=== PATIENT | male | born 1960 | race Caucasian/White ===

== ENCOUNTER → 2024-08-07 18:00 | Outpatient (REF) | payer MEDICARE, OTHER, SELFPAY | LOC: RAD 18:00 | PROVIDERS: ATTENDING PHYSICIAN Family Medicine | DX: R05.1 Acute cough (principal) | CPT/HCPCS: 71046 ==

== ENCOUNTER 2025-03-01 09:45 | Emergency (ER) | payer MEDICARE, OTHER, SELFPAY ==
--- NOTE | 2025-03-01 09:55 | ED.GENMED ---
History of Present Illness
General
Chief Complaint: Heart Rate Problem
Time Seen by Provider: 03/01/25 09:54
History of Present Illness
History of Present Illness:
TIME OF INITIAL ENCOUNTER: 9:57 AM
HPI: Patient has history of atrial fibrillation and coronary artery disease with stents. He has been having palpitations more so over the past month. He feels that he has been going in and out of A-fib more commonly now. He has had some vague
chest discomfort over the last several weeks as well. He states when he was recently in [place] visiting his grandkids, he went on long hikes and did not have any chest pain. He did have a cold recently which is nearly gone but has been on
doxycycline and prednisone. He has not been taking any pseudoephedrine.
EXAM:
GENERAL: Well appearing in no distress
HEENT: Moist oral mucosa
CARDIOVASCULAR: No murmurs, normal heart rate, irregular rhythm, No chest wall tenderness
PULMONARY: No respiratory distress, breath sounds are clear and equal
ABDOMEN: Soft with no peritoneal signs, no tenderness
NEUROLOGIC: Excellent strength all extremities, no coordination deficits
PSYCHIATRIC: Appropriate mental status, normal insight and judgement
EXTREMITIES: Nontender, no edema, moves all extremities equally
SKIN: No rash, no lesions
NUMBER AND COMPLEXITY OF PROBLEMS ADDRESSED AT THE ENCOUNTER
� Chronic conditions affecting care: A-fib, high blood pressure, hyperlipidemia, coronary disease, hepatitis A
� Acute Exacerbation and/or Progression of Chronic Illness: This is an acute problem
� Differential Diagnosis includes: Paroxysmal A-fib, electrolyte abnormality, thyroid disease, ACS very unlikely
AMOUNT AND/OR COMPLEXITY OF DATA TO BE REVIEWED AND ANALYZED
� I performed an independent evaluation of and my interpretation is:
EKG: A-fib rate of 91, nonspecific ST abnormality, on 04/25/2020, the patient was in sinus rhythm
CT:
X-rays:
Laboratory Studies: White count 11.9, hemoglobin normal, chemistries unremarkable, troponin less than 0.012, TSH normal
Other:
� Review of other/old records: I reviewed records, the patient had coronary cath 04/25/2020 he had stent placed
� Clinical information was obtained by an independent historian: None needed
� Prescriptions/Medications Considered but not given:
� Further testing considered but not performed:
RISK OF COMPLICATIONS AND/OR MORBIDITY OR MORTALITY OF PATIENT MANAGEMENT
� Social determinants of health affecting care: Lives at home
� Discussion with other providers: Discussed case with Dr. Watters who agrees we should hold off on electrocardioversion but will try to get him in soon to be seen in their office.
� Escalation of care including admission/observation vs risk of discharge considered: Considered electrical cardioversion however the patient tells me that he thinks he may have missed a dose of Eliquis over the past 2 weeks.
ANY OTHER UPDATES:
While in the emergency department, the patient converted to a sinus rhythm without any intervention. He took his normal Eliquis dosing while in the Emergency Department.
Past History
Past History
ED Past Medical History: CAD, HTN and Hypercholesterolemia; Negative CHF, COPD or NIDDM
ED Past Surgical History: Other (LIPOMA REMOVALS, cath x2 stents - 10/22/13, right foot surgery 1980)
Social History
Tobacco: Non-smoker
Alcohol: None
Drug: None
Personal:
Living: with family
Employment: Employed
Family History
Family History: CAD
Phy Exam
Physical Exam
Physical Exam:
See HPI
Course
Orders/Labs/Results
Orders:
Orders
03/01/25 09:52
Electrocardiogram (*1) Urgent
Reason for Study: Chest Pain
EKG- Treatment ONCE
03/01/25 10:26
Basic Metabolic Panel Urgent
Complete Blood Count/With Diff Urgent
Magnesium Urgent
TSH Reflex To Free T4 Urgent
Troponin I Urgent
03/01/25 10:51
EKG [Electrocardiogram (*1)] Urgent
Reason for Study: Atrial Fibrillation
EKG- Treatment ONCE
Abnormal Lab Results
03/01/25
10:26
WBC 11.9 H 10^3/uL
(4.8-10.8)
Abs Immat Gran (auto) 0.1 H 10^3/uL
(0-0.05)
Absolute Neuts (auto) 9.3 H 10^3/uL
(1.4-6.5)
Absolute Monos (auto) 0.7 H 10^3/uL
(0.1-0.6)
Immature Gran % 0.8 H %
(0-0.5)
Neutrophils % 77.6 H %
(42.2-75.2)
Lymphocytes % 15.4 L %
(20.5-51.1)
BUN 21 H mg/dl
(9-20)
Glucose 109 H mg/dl
(70-99)
03/01/25 10:26
03/01/25 10:26
Vital Signs
Initial and Last Documented VS:
Initial Vital Signs
Temp Pulse Resp Pulse Ox
36.6 C 105 16 96
03/01/25 09:47 03/01/25 09:47 03/01/25 09:47 03/01/25 09:47
Last Documented Vital Signs
Temp Pulse Resp BP Pulse Ox
36.6 C 77 17 132/65 96
03/01/25 09:47 03/01/25 11:30 03/01/25 11:30 03/01/25 11:00 03/01/25 11:30
*Critical Care Note
Total Time (30-74mins, 75-104mins- exclusive of procedures): Not Applicable
ED Attending Note
-
Portions of this chart may have been created with voice recognition software.� Occasional wrong word or��sound alike� substitutions may have occurred due to the inherent limitations of voice recognition software.
Discharge Plan
Departure
Patient Disposition: Home (Routine Discharge)
Date of Disposition: 03/01/25
Time of Disposition: 11:40
Patient with high blood pressure during this ER visit?: Yes
Discharge Problem:
Paroxysmal atrial fibrillation
Prescriptions:
No Action
magnesium oxide 250 MG tablet
400 mg PO 1400
alprazolam 0.25 MG tablet
0.25 mg PO Q8HPRN PRN (Reason: anxiety)
diltiazem HCl 180 MG capsule,extended release 24hr
240 mg PO DAILY
ascorbic acid (vitamin C) [Vitamin C] 500 MG tablet
500 mg PO BID
coenzyme Q10 [Co Q-10] 100 MG capsule
100 mg PO DAILY
cholecalciferol (vitamin D3) 125 MCG tablet,disintegrating
125 mcg PO DAILY
nitroglycerin 0.4 MG tablet, sublingual
0.4 mg sublingual [id number] PRN (Reason: chest pain) Qty: 25 2RF
metoprolol succinate 100 MG tablet extended release 24 hr
75 mg PO QPM Qty: 0 0RF
pantoprazole 40 MG tablet,delayed release (DR/EC)
40 mg PO DAILY Qty: 90 3RF
Patient Comments:
2-3 times a week
Rx Instructions:
Please increase to daily while on plavix and eliquis together
apixaban [Eliquis] 5 MG tablet
5 mg PO BID Qty: 0 0RF
Rx Instructions:
OK to restart tonight, 6/12 in PM
clopidogrel 75 MG tablet
75 mg PO DAILY Qty: 90 3RF
aspirin 81 MG tablet,delayed release (DR/EC)
81 mg PO DAILY Qty: 0 0RF
Rx Instructions:
Please take for 2 weeks post cath then STOP completely
rosuvastatin 20 MG tablet
20 mg PO QPM Qty: 90 3RF
Rx Instructions:
OK to finish bottle of atorvastatin and then start crestor
Referrals:
Josh Thomson MD [Active] - Follow up in 2-3 days
Levon Currie, [Family Provider] -
Activity Restrictions/Additional Instructions:
Continue your current medications. Return here if worse or other concerns. Follow-up with your commercial loan underwriter.
Interventions
Interventions:
*Risk Screen - Suicide Last Done: 03/01/25 10:40
*General Assessment Last Done: 03/01/25 10:40
*Neglect/Abuse Screening Last Done: 03/01/25 10:40
*ED- Fall Risk Assessment Last Done: 03/01/25 10:40
*ED COVID-19 Vaccine History Last Done: 03/01/25 10:40
ED- Cardiac Assessment Last Done: 03/01/25 10:41
ED- Pulmonary Assessment Last Done: 03/01/25 10:41
Discharge Date and Time
Print Language: GERMAN
[2025-03-01 10:00] VITALS: BP 136/74
[2025-03-01 10:19] VITALS: BMI 36.2
[2025-03-01 10:45] LABS: % Basophils 0.2 % (0-2); % Immature Granulocytes 0.8 % (0-0.5); % Lymphocytes 15.4 % (20.5-51.1); % Neutrophils 77.6 % (42.2-75.2); Absolute Immature Granulocytes 0.1 10^3/uL (0-0.05); Absolute Lymphocytes 1.8 10^3/uL (1.2-3.4); Absolute Monocytes 0.7 10^3/uL (0.1-0.6); Absolute Neutrophils 9.3 10^3/uL (1.4-6.5); Hematocrit 41.3 % (39.0-52.0); Hemoglobin 14.7 g/dL (13.0-18.0); Mean Corp Hgb Conc. 35.6 g/dL (33.0-37.0); Mean Corpuscular Hgb 30.4 pg (27.0-31.0); Mean Corpuscular Volume 85.3 fL (80.0-94.0); Mean Platelet Volume 8.1 fL (7.4-10.4); Nucleated Red Blood Cells % 0 % (-); Platelet Count 214 10^3/uL (130-400); Red Blood Cell Count 4.84 10^6/uL (4.70-6.10); Red Cell Dist. Width 12.1 % (11.5-14.5); White Blood Cell Count 11.9 10^3/uL (4.8-10.8)
[2025-03-01 10:57] LABS: Blood Urea Nitrogen 21 mg/dl (9-20); Calcium 9.7 mg/dl (8.4-10.2); Carbon Dioxide 27 mmol/L (22-30); Chloride 103 mmol/L (98-107); Estimated Creatinine Clearance 107 ml/min; Glucose 109 mg/dl (70-99); Potassium 4.3 mmol/L (3.5-5.1); Sodium 140 mmol/L (135-145); eGFR > 60.00
[2025-03-01 11:00] VITALS: BP 132/65
[2025-03-01 11:09] LABS: Troponin I < 0.012 ng/ml
[2025-03-01 11:49] LABS: TSH Reflex To Free T4 2.42 uIU/ml (0.47-4.68)
[2025-03-01 12:51] VITALS: BP 132/65
== END 2025-03-01 12:00 | disposition home or self-care (01) ==
LOC: EMR 09:45
PROVIDERS: EMERGENCY PHYSICIAN Emergency Medicine; FAMILY PHYSICIAN Family Medicine; REFERRING PHYSICIAN Internal Medicine Cardiovascular Disease
DX: I48.0 Paroxysmal atrial fibrillation (principal); I25.10 Atherosclerotic heart disease of native coronary artery without angina pectoris; I10 Essential (primary) hypertension; E78.00 Pure hypercholesterolemia, unspecified; Z82.49 Family history of ischemic heart disease and other diseases of the circulatory system; Z95.5 Presence of coronary angioplasty implant and graft
CPT/HCPCS: 99283; 80048; 83735; 84443; 84484; 85025; 93005

== ENCOUNTER 2025-03-09 07:53 | Emergency (ER) | payer MEDICARE, OTHER, SELFPAY ==
[2025-03-09 08:01] VITALS: BP 141/79
[2025-03-09 08:18] VITALS: BP 130/69
[2025-03-09 08:20] VITALS: BP 130/69; BMI 35.0
--- NOTE | 2025-03-09 08:35 | ED.GENMED ---
History of Present Illness
General
Chief Complaint: Heart Rate Problem
Source: patient and spouse
Time Seen by Provider: 03/09/25 08:07
History of Present Illness
History of Present Illness:
65-year-old male with a history of A-fib on Eliquis, metoprolol and diltiazem who presents after he sensed some palpitations and irregular heartbeat. Patient states that he otherwise has no symptoms. He denies shortness of breath or chest pain.
No diaphoresis. Tolerating recent long walks and hikes. Does see cardiology. Has not had electrophysiology evaluation. Patient states that sometimes he will take a little bit of lorazepam or an extra dose of metoprolol. Currently offers no
complaints
Past History
Past History
ED Past Medical History: Arrthythmia (Atrial fibrillation), CAD, HTN and Hypercholesterolemia; Negative CHF, COPD or NIDDM
ED Past Surgical History: Other (LIPOMA REMOVALS, cath x2 stents - 10/22/13, right foot surgery 1980)
Social History
Tobacco: Non-smoker
Alcohol: None
Drug: None
Personal:
Living: with family
Employment: Employed
Family History
Family History: CAD
Phy Exam
Physical Exam
Physical Exam:
CONSTITUTIONAL Patient alert and oriented to person, place and time. Well-appearing. Vital signs reviewed.
HEAD atraumatic, normocephalic.
EYES eyelids normal to inspection, Extraocular muscles intact, Conjunctiva normal, Sclera normal.
NECK normal range of motion, Trachea midline, no jugular venous distention.
RESPIRATORY CHEST No respiratory distress noted, Chest expansion equal, Bilateral breath sounds clear.
CARDIOVASCULAR irregularly irregular
ABDOMEN abdomen nontender, Bowel sounds normal. No distention.
BACK normal inspection, no obvious deformities
UPPER EXTREMITY range of motion normal, Motor strength normal, no cyanosis, no edema.
LOWER EXTREMITY range of motion normal, Motor strength normal, no cyanosis, no edema.
NEURO Speech normal, No focal motor deficits, Remlap coma scale 15, Memory normal, Cranial Nerves intact to screening exam.
SKIN skin warm, dry, and normal in color.
Course
Orders/Labs/Results
Orders:
Orders
03/09/25 07:54
ECG [Electrocardiogram (*1)] Urgent
Reason for Study: Palpitations
EKG- Treatment ONCE
03/09/25 08:36
Complete Blood Count/With Diff Urgent
Comprehensive Metabolic Panel Urgent
Magnesium Urgent
Abnormal Lab Results
03/09/25
08:36
Glucose 104 H mg/dl
(70-99)
03/09/25 08:36
03/09/25 08:36
Vital Signs
Initial and Last Documented VS:
Initial Vital Signs
Temp Pulse Resp BP Pulse Ox
97.4 F 81 18 141/79 96
03/09/25 08:01 03/09/25 08:01 03/09/25 08:01 03/09/25 08:01 03/09/25 08:01
Last Documented Vital Signs
Temp Pulse Resp BP Pulse Ox
98.6 F 72 20 130/69 98
03/09/25 08:20 03/09/25 08:20 03/09/25 08:20 03/09/25 08:20 03/09/25 08:20
MDM/Problems Addressed
Differential Diagnosis Includes:
Electrolyte disturbance, volume depletion
MDM/Problems Addressed:
Paroxysmal atrial fibrillation
*Pulse Oximetry
Patient hypoxic: no
*EKG
Interpreted by ED Provider?: Yes
Interpretation: abnormal
Rate: normal
Rhythm: a-fib
Ischemia: non-specific ST changes
*Regulatory Compliance Engineer Interpretation
Rate: normal
Interpretation: abnormal
Rhythm: a-fib
*Critical Care Note
Total Time (30-74mins, 75-104mins- exclusive of procedures): Not Applicable
Data Reviewed
Source: patient and spouse (Spouse states that he tolerated recent travel to [place] without difficulty. Was also recently on steroids)
Prescriptions/Medications Considered But Not Given:
Considered AV blockers but heart rate consistently around 70
Patient Management
Escalation/DeEscalation of care consider admission/obs:
Patient A-fib but asymptomatic at this time. Already on Eliquis. Already on beta-blockers. At this point there is no indication for emergency cardioversion or other intervention. Will refer for outpatient cardiology follow-up
Update Note
Update Note:
08 03 patient converted to sinus rhythm. Outpatient follow-up
ED Attending Note
-
Portions of this chart may have been created with voice recognition software.� Occasional wrong word or��sound alike� substitutions may have occurred due to the inherent limitations of voice recognition software.
Discharge Plan
Departure
Patient Disposition: Home (Routine Discharge)
Date of Disposition: 03/09/25
Time of Disposition: 09:15
Patient with high blood pressure during this ER visit?: No
Discharge Problem:
Paroxysmal atrial fibrillation
Instructions: Atrial Fibrillation (DC)
Prescriptions:
No Action
magnesium oxide 250 MG tablet
400 mg PO 1400
alprazolam 0.25 MG tablet
0.25 mg PO Q8HPRN PRN (Reason: anxiety)
diltiazem HCl 180 MG capsule,extended release 24hr
240 mg PO DAILY
ascorbic acid (vitamin C) [Vitamin C] 500 MG tablet
500 mg PO BID
coenzyme Q10 [Co Q-10] 100 MG capsule
100 mg PO DAILY
cholecalciferol (vitamin D3) 125 MCG tablet,disintegrating
125 mcg PO DAILY
nitroglycerin 0.4 MG tablet, sublingual
0.4 mg sublingual [id number] PRN (Reason: chest pain) Qty: 25 2RF
metoprolol succinate 100 MG tablet extended release 24 hr
75 mg PO QPM Qty: 0 0RF
pantoprazole 40 MG tablet,delayed release (DR/EC)
40 mg PO DAILY Qty: 90 3RF
Patient Comments:
2-3 times a week
Rx Instructions:
Please increase to daily while on plavix and eliquis together
Eliquis 5 MG tablet
5 mg PO BID Qty: 0 0RF
Rx Instructions:
OK to restart tonight, 04/25 in PM
clopidogrel 75 MG tablet
75 mg PO DAILY Qty: 90 3RF
aspirin 81 MG tablet,delayed release (DR/EC)
81 mg PO DAILY Qty: 0 0RF
Rx Instructions:
Please take for 2 weeks post cath then STOP completely
rosuvastatin 20 MG tablet
20 mg PO QPM Qty: 90 3RF
Rx Instructions:
OK to finish bottle of atorvastatin and then start crestor
Referrals:
Levon Currie, DO [Family Provider] -
Activity Restrictions/Additional Instructions:
Please continue your current medications and see cardiology in the next 3 to 5 days for reevaluation. Further evaluation by turn sewer may be beneficial to evaluate management options. Return immediately for shortness of breath, chest
pain, leg swelling, worsening symptoms, lightheadedness, near passing out, passing out episode or any other concerns.
Interventions
Interventions:
*Risk Screen - Suicide Last Done: 03/09/25 08:01
*General Assessment Last Done: 03/09/25 08:01
*Neglect/Abuse Screening Last Done: 03/09/25 08:01
*ED- Fall Risk Assessment Last Done: 03/09/25 08:20
*ED COVID-19 Vaccine History Last Done: 03/09/25 08:20
ED- Cardiac Assessment Last Done: 03/09/25 08:20
ED- Pulmonary Assessment Last Done: 03/09/25 08:20
Discharge Date and Time
Print Language: CHINESE
[2025-03-09 08:49] LABS: % Basophils 0.5 % (0-2); % Eosinophils 2.3 % (0-6); % Immature Granulocytes 0.3 % (0-0.5); % Lymphocytes 29.3 % (20.5-51.1); % Monocytes 8.3 % (1.7-9.3); % Neutrophils 59.3 % (42.2-75.2); Absolute Eosinophils 0.2 10^3/uL (0-0.7); Absolute Lymphocytes 2.3 10^3/uL (1.2-3.4); Absolute Monocytes 0.6 10^3/uL (0.1-0.6); Absolute Neutrophils 4.6 10^3/uL (1.4-6.5); Hematocrit 43.3 % (39.0-52.0); Hemoglobin 15.1 g/dL (13.0-18.0); Mean Corp Hgb Conc. 34.9 g/dL (33.0-37.0); Mean Corpuscular Hgb 30.1 pg (27.0-31.0); Mean Corpuscular Volume 86.4 fL (80.0-94.0); Mean Platelet Volume 8.4 fL (7.4-10.4); Nucleated Red Blood Cells % 0 % (-); Platelet Count 181 10^3/uL (130-400); Red Blood Cell Count 5.01 10^6/uL (4.70-6.10); Red Cell Dist. Width 12.7 % (11.5-14.5); White Blood Cell Count 7.7 10^3/uL (4.8-10.8)
[2025-03-09 09:00] VITALS: BP 116/72
[2025-03-09 09:04] LABS: ALT (SGPT) 13 U/L (0-50); AST (SGOT) 18 U/L (17-59); Albumin 4.1 g/dl (3.5-5.0); Alkaline Phosphatase 64 U/L (38-126); Blood Urea Nitrogen 17 mg/dl (9-20); Calcium 9.6 mg/dl (8.4-10.2); Carbon Dioxide 25 mmol/L (22-30); Chloride 104 mmol/L (98-107); Estimated Creatinine Clearance 105 ml/min; Glucose 104 mg/dl (70-99); Magnesium 1.9 mg/dl (1.6-2.3); Potassium 4.3 mmol/L (3.5-5.1); Sodium 140 mmol/L (135-145); Total Bilirubin 0.8 mg/dl (0.2-1.3); Total Protein 6.9 g/dl (6.3-8.2); eGFR > 60.00
--- NOTE | 2025-03-09 09:20 | EDRN ---
Dr. Bueno currently at the pts bedside
--- NOTE | 2025-03-09 09:20 | EDRN ---
the pt converted into NSR in the -'s, Dr. Bueno currently at the pts bedside
== END 2025-03-09 09:38 | disposition home or self-care (01) ==
LOC: EMR 07:53
PROVIDERS: EMERGENCY PHYSICIAN Emergency Medicine; FAMILY PHYSICIAN Family Medicine
DX: I48.0 Paroxysmal atrial fibrillation (principal); I10 Essential (primary) hypertension; E78.00 Pure hypercholesterolemia, unspecified; Z79.899 Other long term (current) drug therapy; I25.10 Atherosclerotic heart disease of native coronary artery without angina pectoris; Z79.01 Long term (current) use of anticoagulants
CPT/HCPCS: 99284; 80053; 83735; 85025; 93005

== ENCOUNTER → 2025-03-27 06:45 | Outpatient (REF) | payer OTHER, SELFPAY | LOC: RCS 06:45 | PROVIDERS: ATTENDING PHYSICIAN Nurse Practitioner Gerontology; FAMILY PHYSICIAN Family Medicine | DX: I48.0 Paroxysmal atrial fibrillation (principal) | CPT/HCPCS: 93306 ==

== ENCOUNTER 2025-09-16 23:53 | Emergency (ER) | payer OTHER, SELFPAY ==
[2025-09-16 23:57] VITALS: BP 144/78
[2025-09-17 00:26] VITALS: BMI 37.7
[2025-09-17 00:31] VITALS: BP 101/68
[2025-09-17 01:00] VITALS: BP 113/63
[2025-09-17 01:05] LABS: Hematocrit 38.7 % (39.0-52.0); Hemoglobin 13.3 g/dL (13.0-18.0); Mean Corp Hgb Conc. 34.4 g/dL (33.0-37.0); Mean Corpuscular Volume 90.6 fL (80.0-94.0); Nucleated Red Blood Cells % 0 % (-); Platelet Count 137 10^3/uL (130-400); Red Cell Dist. Width 12.5 % (11.5-14.5)
[2025-09-17 01:15] LABS: ALT (SGPT) 14 U/L (0-50); AST (SGOT) 17 U/L (17-59); Albumin 4.2 g/dl (3.5-5.0); Alkaline Phosphatase 59 U/L (38-126); Blood Urea Nitrogen 16 mg/dl (9-20); Calcium 8.9 mg/dl (8.4-10.2); Carbon Dioxide 25 mmol/L (22-30); Chloride 103 mmol/L (98-107); Estimated Creatinine Clearance 109 ml/min; Glucose 103 mg/dl (70-99); Magnesium 1.9 mg/dl (1.6-2.3); Potassium 4.1 mmol/L (3.5-5.1); Sodium 132 mmol/L (135-145); Total Protein 7.1 g/dl (6.3-8.2); eGFR > 60.00
[2025-09-17 02:00] VITALS: BP 113/65
--- NOTE | 2025-09-17 02:07 | ED.GENMED ---
History of Present Illness
General
Chief Complaint: Heart Rate Problem
Source: patient and spouse
Time Seen by Provider: 09/17/25 00:37
History of Present Illness
History of Present Illness:
Note:
CHIEF COMPLAINT(S)
Atrial Fibrillation and Coughing
HISTORY OF PRESENT ILLNESS
The patient is a 62-year-old male with a history of atrial fibrillation, presenting with a 'pretty nasty coughing' over the last couple of days. The patient tested negative for COVID-19. Symptoms became more consistent around 5 or 6 PM. He took his
regular medications, including 10 mg of Eliquis (Apixaban) at 6 PM and 75 mg of Metoprolol at the same time the previous night. Additionally, the patient took Xanax (Alprazolam) 0.25 mg to alleviate anxiety and uses magnesium and vitamins C and D
supplements.
The patient reports feeling 'pretty good' currently, although at times he feels his heart rate is irregular but then stabilizes. The patient confirms his paper feeder, Dr. Thomson, manages his atrial fibrillation. He denies any shortness of breath
or chest pain and is not using any [id number] cold or cough medications.
Discussion included the possibility of the viral illness contributing to atrial fibrillation exacerbations. The patient�s heart rate is currently controlled, and his symptoms are tolerable. Concerns about reverting him from atrial fibrillation while
having a cold were discussed, as the cold might cause recurrence. The patient was advised to aim for weight reduction through calorie restriction and cautious magnesium supplementation to maintain electrolyte balance. A plan for monitoring
electrolyte levels through laboratory tests was agreed upon.
PAST MEDICAL AND SURGICAL HISTORY
Atrial Fibrillation
CHRONIC MEDICAL CONDITIONS SIGNIFICANTLY AFFECTING CARE
Atrial Fibrillation
MEDICATIONS
- Eliquis (Apixaban) 10 mg daily
- Metoprolol 75 mg daily
- Xanax (Alprazolam) 0.25 mg as needed
- Magnesium supplement
- Vitamin C
- Vitamin D
PHYSICAL EXAM
General: Alert, no acute distress.
Cardiovascular: Regularly irregular heart rate, 73 beats per minute.
Respiratory: Respirations are non-labored.
PROBLEM LIST
- Acute: Cough, Atrial Fibrillation exacerbation
- Chronic: Atrial Fibrillation
PLAN
- Monitor electrolyte levels through laboratory tests, focusing on potassium and magnesium.
- Discuss the possibility of cardioverting if symptoms worsen, but postpone due to current illness.
- Continue regular medication regimen.
- Consider consulting the paper feeder, Dr. Thomson, should the condition not improve or further complications arise.
- Implement a weight reduction plan with calorie restriction as discussed.
- Re-evaluate in three months for consistent lab results regarding magnesium and potassium maintenance.
DIFFERENTIAL DIAGNOSIS
The Differential Diagnosis includes, in no particular order and is not limited to:
1. Atrial Fibrillation exacerbation due to viral illness
2. Upper Respiratory Infection
3. COVID-19 (despite a negative test)
4. Pneumonia
5. Sinusitis
6. Heart Failure exacerbation
7. Anxiety-induced palpitations
8. Drug-induced arrhythmias
9. Electrolyte imbalances
10. Allergic rhinitis
EKG
My independent EKG interpretation is:
- Time of EKG: Not specified
- Rhythm: Atrial fibrillation
- Heart Rate: 74 bpm
- Ava: Normal
- Intervals: Normal
- Abnormalities: None noted, no acute ischemic changes
Disposition:
SUMMARY OF ENCOUNTER
The patient, a 62-year-old male with a known history of atrial fibrillation, presented with concerns about his heart 'fluttering' abnormally but in a rate-controlled manner. He reported no chest pain or shortness of breath, and his history was
consistent with an upper respiratory infection that had exacerbated his coughing. Previous emergency department visits included cardioversion on one occasion. Current laboratory results show a normal Complete Blood Count (CBC) and Comprehensive
Metabolic Panel (CMP). The Electrocardiogram (EKG) confirmed atrial fibrillation with a controlled rate. Considering his current cold, cardioversion was deferred as it may lead to quick reversion to atrial fibrillation due to the infection. It was
determined more prudent to stabilize his condition and defer cardioversion until after recovery, with instructions to continue his current medication regimen.
ASSESSMENT
1. Atrial fibrillation with rate control
2. Upper respiratory infection contributing to symptoms
PLAN
Continue current medications, including anticoagulation and heart rate control medication. Defer cardioversion until the upper respiratory infection resolves. Recommend follow-up with the patients paper feeder, Dr. Thomson, for further management
if atrial fibrillation persists.
INDEPENDENT REVIEW OF LABS AND INTERPRETATION OF TESTS
My independent review of CBC is normal.
My independent review of CMP is normal.
My independent EKG interpretation is atrial fibrillation with a controlled rate.
FOLLOW-UP INSTRUCTIONS
The patient should follow up with Dr. Thomson, their paper feeder, especially if atrial fibrillation persists.
MEDICATION RECONCILIATION
Continue anticoagulation medication and heart rate control medication as prescribed.
MEDICAL DECISION MAKING
-Complexity of Data Reviewed: Chronic conditions affecting care include atrial fibrillation, upper respiratory infection.
-Data:
Category 1
My independent interpretation of EKG confirms atrial fibrillation at a controlled rate.
-Risk:
Consideration of Admission/Observation: Escalation of care including admission/observation was considered given the complexity and risk of the patients presenting complaint. However, ultimately, the patient is deemed safe for outpatient management
with close follow-up. Reasoning: Work-up reassuring, does not reveal any acute life/organ-threatening processes, patients symptoms well-controlled upon reevaluation, reexamination is reassuring, vitals are stable, patient agreeable with discharge,
and reliable for follow-up.
DIAGNOSIS
1. Atrial fibrillation (I48.91)
2. Upper respiratory infection (J06.9)
Past History
Past History
ED Past Medical History: Arrthythmia (Atrial fibrillation), CAD, HTN and Hypercholesterolemia; Negative CHF, COPD or NIDDM
ED Past Surgical History: Other (LIPOMA REMOVALS, cath x2 stents - 10/22/13, right foot surgery 1980)
Social History
Tobacco: Non-smoker
Alcohol: None
Drug: None
Personal:
Living: with family
Employment: Employed
Family History
Family History: CAD
Phy Exam
Physical Exam
Physical Exam:
.
Course
Orders/Labs/Results
Orders:
Orders
09/16/25 23:54
ECG [Electrocardiogram (*1)] Urgent
Reason for Study: Palpitations
EKG- Treatment ONCE
09/17/25 00:45
Complete Blood Count/With Diff Urgent
Comprehensive Metabolic Panel Urgent
Magnesium Urgent
Abnormal Lab Results
09/17/25
00:45
RBC 4.27 L 10^6/uL
(4.70-6.10)
Hct 38.7 L %
(39.0-52.0)
MCH 31.1 H pg
(27.0-31.0)
Absolute Neuts (auto) 8.0 H 10^3/uL
(1.4-6.5)
Neutrophils % 79.6 H %
(42.2-75.2)
Lymphocytes % 11.9 L %
(20.5-51.1)
Sodium 132 L mmol/L
(135-145)
Glucose 103 H mg/dl
(70-99)
09/17/25 00:45
09/17/25 00:45
Vital Signs
Initial and Last Documented VS:
Initial Vital Signs
Temp Pulse Resp BP Pulse Ox
97.8 F 74 20 144/78 96
09/16/25 23:57 09/16/25 23:57 09/16/25 23:57 09/16/25 23:57 09/16/25 23:57
Last Documented Vital Signs
Temp Pulse Resp BP Pulse Ox
97.8 F 65 20 113/65 94
09/16/25 23:57 09/17/25 02:00 09/17/25 02:00 09/17/25 02:00 09/17/25 02:00
*Pulse Oximetry
SaO2: 95
Oxygen Mode of Delivery: Room air
Patient hypoxic: no
*Critical Care Note
Total Time (30-74mins, 75-104mins- exclusive of procedures): Not Applicable
ED Attending Note
-
Portions of this chart may have been created with voice recognition software.� Occasional wrong word or��sound alike� substitutions may have occurred due to the inherent limitations of voice recognition software.
Discharge Plan
Departure
Patient Disposition: Home (Routine Discharge)
Date of Disposition: 09/17/25
Time of Disposition: 02:09
Patient with high blood pressure during this ER visit?: No
Discharge Problem:
Paroxysmal A-fib
Instructions: Atrial Fibrillation (DC)
Prescriptions:
No Action
magnesium oxide 250 MG tablet
400 mg PO 1400
alprazolam 0.25 MG tablet
0.25 mg PO Q8HPRN PRN (Reason: anxiety)
diltiazem HCl 180 MG capsule,extended release 24hr
240 mg PO DAILY
ascorbic acid (vitamin C) [Vitamin C] 500 MG tablet
500 mg PO BID
coenzyme Q10 [Co Q-10] 100 MG capsule
100 mg PO DAILY
cholecalciferol (vitamin D3) 125 MCG tablet,disintegrating
125 mcg PO DAILY
nitroglycerin 0.4 MG tablet, sublingual
0.4 mg sublingual [id number] PRN (Reason: chest pain) Qty: 25 2RF
metoprolol succinate 100 MG tablet extended release 24 hr
75 mg PO QPM Qty: 0 0RF
pantoprazole 40 MG tablet,delayed release (DR/EC)
40 mg PO DAILY Qty: 90 3RF
Patient Comments:
2-3 times a week
Rx Instructions:
Please increase to daily while on plavix and eliquis together
Eliquis 5 MG tablet
5 mg PO BID Qty: 0 0RF
Rx Instructions:
OK to restart tonight, 04/25 in PM
clopidogrel 75 MG tablet
75 mg PO DAILY Qty: 90 3RF
aspirin 81 MG tablet,delayed release (DR/EC)
81 mg PO DAILY Qty: 0 0RF
Rx Instructions:
Please take for 2 weeks post cath then STOP completely
rosuvastatin 20 MG tablet
20 mg PO QPM Qty: 90 3RF
Rx Instructions:
OK to finish bottle of atorvastatin and then start crestor
Referrals:
Levon Currie, DO [Family Provider, Family Practice]
Activity Restrictions/Additional Instructions:
Please continue your current medications. Please see your paper feeder in the next 1 week for follow-up and reevaluation. If atrial fibrillation persists when you are upper respiratory infection resolves, you may consider cardioversion. Continue
your current medications. Return immediately for chest pain, shortness of breath or any other concerns.
Interventions
Interventions:
*Risk Screen - Suicide Last Done: 09/16/25 23:57
*General Assessment Last Done: 09/17/25 00:31
*Neglect/Abuse Screening Last Done: 09/16/25 23:57
*ED- Fall Risk Assessment Last Done: 09/17/25 00:31
*ED COVID-19 Vaccine History Last Done: 09/17/25 00:31
*ED Influenza Vaccine History Last Done: 09/17/25 00:31
ED- Cardiac Assessment Last Done: 09/17/25 00:32
ED- Pulmonary Assessment Last Done: 09/17/25 00:32
Discharge Date and Time
Print Language: SERBIAN
== END 2025-09-17 02:24 | disposition home or self-care (01) ==
LOC: EMR 23:53
PROVIDERS: EMERGENCY PHYSICIAN Emergency Medicine; FAMILY PHYSICIAN Family Medicine
DX: I48.0 Paroxysmal atrial fibrillation (principal); E11.9 Type 2 diabetes mellitus without complications; E78.00 Pure hypercholesterolemia, unspecified; F41.9 Anxiety disorder, unspecified; I10 Essential (primary) hypertension; I25.10 Atherosclerotic heart disease of native coronary artery without angina pectoris; Z11.52 Encounter for screening for COVID-19; Z79.01 Long term (current) use of anticoagulants; Z79.899 Other long term (current) drug therapy; Z82.49 Family history of ischemic heart disease and other diseases of the circulatory system; Z95.0 Presence of cardiac pacemaker
CPT/HCPCS: 99283; 80053; 83735; 85025; 93005